=== PATIENT | male | born 1955 | race Caucasian/White ===

== ENCOUNTER 2022-08-03 15:59 | Inpatient (IN) | payer OTHER ==
[~2022-08-03] VITALS: Ht 165.1 cm; Wt 101.5 kg
[~2022-08-03 15:59] MED LIST: ALBU90OI61 INH; CEPH500 PO; ELIQUIS5 M2 PO; IBUP200; LEVEMIR SC; LISI20 PO; METO50ER; OMEP20ER; OXAYDO5 M1 PO; XARELTO10 MG PO
[2022-08-03 16:32] LABS: BASOPHILS ABSOLUTE AUTO 0.04 K/mm3 (0.00-0.23); BASOPHILS PERCENT AUTO 0 % (0-2); EOSINOPHILS ABSOLUTE AUTO 0.12 K/mm3 (0.00-0.68); EOSINOPHILS PERCENT AUTO 1 % (0-6); Hematocrit 43.3 % (37.0-53.0); Hemoglobin 13.7 g/dL (13.5-17.5); IMMATURE GRAN ABSOLUTE AUTO 0.06 K/mm3 (0.00-0.10); IMMATURE GRAN PERCENT AUTO 1 % (0-1); LYMPHOCYTES ABSOLUTE AUTO 1.45 K/mm3 (0.84-5.20); LYMPHOCYTES PERCENT AUTO 14 % (21-46); MONOCYTES ABSOLUTE AUTO 0.99 K/mm3 (0.16-1.47); MONOCYTES PERCENT AUTO 10 % (4-13); Mean Corpuscular HGB 26.6 pg (26.0-34.0); Mean Corpuscular HGB Conc 31.6 g/dL (31.5-36.5); Mean Corpuscular Volume 84 fL (80-100); Mean Platelet Volume 9.9 fL (9.1-12.4); NEUTROPHILS ABSOLUTE AUTO 7.75 K/mm3 (1.96-9.15); NEUTROPHILS PERCENT AUTO 74 % (41-73); Platelet Count 334 K/mm3 (150-400); RDW Coefficient Variation 13.3 % (11.7-14.2); Red Blood Cell Count 5.16 M/mm3 (4.30-5.90); White Blood Cell Count 10.41 K/mm3 (4.00-11.30)
[2022-08-03 16:49] LABS: Albumin, Blood 2.6 g/dL (3.4-5.0); Albumin/Globulin Ratio 0.5 (0.8-1.8); Bilirubin, Total 0.5 mg/dL (0.1-1.0); Bun/Creatinine Ratio 34.7 (12.0-20.0); Calcium, Blood 9.8 mg/dL (8.5-10.1); Creatinine, Blood 0.63 mg/dL (0.60-1.20); Potassium, Blood 4.6 mmol/L (3.5-5.5); Total Protein, Blood 7.6 g/dL (6.4-8.2)
[2022-08-03 17:00] LABS: Source, Urine Clean Catch
[2022-08-03 17:03] LABS: Appearance, Urine Clear (Clear); Bilirubin, Urine Neg (Neg); Blood, Urine Neg (Neg); Color, Urine Yellow (P-Yellow); Glucose Qualitative, Urine Neg (Neg); Ketones, Urine Neg (Neg); Leukocyte Esterase, Urine Neg (Neg); Nitrite, Urine Neg (Neg); Protein, Urine Neg (Neg); Urobilinogen, Urine NORM (Normal)
--- NOTE | 2022-08-04 | NUR ---
PT ARIVES FROM THE ED VIA [facility]. UPON ADMIT THE PT IS SOB, DESPITE BEING ON 5L NC. ONCE TRANSFERED FROM THE [facility] TO THE HOSPITAL BED AND SETTLED IN TO BED THE PTS BREATHING SETTLED DOWN AND THE PT WAS SATING 94% ON 5L NC. THE PT DENIES ANY CHEST PAIN/PRESSURE UPON ADMIT WELL ANY N/V. THE PT DOES REPORT SOME MILD PAIN WITH ROLLING. THE PT IS AXO X4.THE PT IS TOO WEAK TO AMBULATE AT THIS TIME. THE PT IS CURRENTLY RESTING IN BED WITH THE BED IN THE LOWEST POSITION, CPAP IN PLACE W/ 5L BLEED IN AND THE CALL LIGHT AT BEDSIDE. THE PT HAS NO FURTHER COMPLAINTS AT THIS TIME.
[2022-08-04 00:07] VITALS: BP 167/94
[2022-08-04 00:08] VITALS: BP 165/85
--- NOTE | 2022-08-04 00:50 | NUR ---
CALLED DR. GARCIA REGARDING PT HAVING WET LUNG SOUNDS. PRIOR TO CALLING DR. GARCIA I HAD RT COME AND AUSCULTATE THE PTS LUNG SOUNDS TO CONFIRM THAT THE PT HAD WET LUNG SOUNDS. PER DR. GARCIA THE PT'S WET LUNG SOUNDS ARE LIKELY NOT CARDIAC RELATED THE PT DOES NOT HAVE OR REPORT HAVING CHF. PER DR. GARCIA CONTINUE TO FOLLOW COPD EXACERBATION PROTOCOL. NO NEW ORDERS AT THIS TIME.
--- NOTE | 2022-08-04 04:24 | NUR ---
SHIFT SUMMARY; NO ACUTE CHANGES SINCE ADMIT. THE PT IS AXO X4 AND ON BEDREST DUE TO WEAKNESS AT THIS TIME. THE PT WAS SOB ON ADMIT BUT HAS SINCE NOT BEEN. THE PT IS PRESENTLY ON 5L BLEED IN VIA CPAP WITH O2 SATS GREATER THAN 90%. THE PT HAS TELE IN PLACE, A-FIB IN THE 'S. THE PT DENIES ANY SOB, CHEST PAIN/PRESSURE, N/V, OR PAIN. CURRENTLY THE PT IS RESTING IN BED WITH THE BED IN THE LOWEST POSITION AND THE CALL LIGHT AT BEDSIDE.
[2022-08-04 05:22] LABS: BASOPHILS ABSOLUTE AUTO 0.02 K/mm3 (0.00-0.23); BASOPHILS PERCENT AUTO 0 % (0-2); EOSINOPHILS ABSOLUTE AUTO 0.02 K/mm3 (0.00-0.68); EOSINOPHILS PERCENT AUTO 0 % (0-6); Hematocrit 42.8 % (37.0-53.0); Hemoglobin 13.8 g/dL (13.5-17.5); IMMATURE GRAN ABSOLUTE AUTO 0.07 K/mm3 (0.00-0.10); IMMATURE GRAN PERCENT AUTO 1 % (0-1); LYMPHOCYTES PERCENT AUTO 4 % (21-46); MONOCYTES ABSOLUTE AUTO 0.23 K/mm3 (0.16-1.47); MONOCYTES PERCENT AUTO 2 % (4-13); Mean Corpuscular HGB 26.7 pg (26.0-34.0); Mean Corpuscular HGB Conc 32.2 g/dL (31.5-36.5); Mean Corpuscular Volume 83 fL (80-100); Mean Platelet Volume 10.1 fL (9.1-12.4); NEUTROPHILS ABSOLUTE AUTO 11.97 K/mm3 (1.96-9.15); NEUTROPHILS PERCENT AUTO 93 % (41-73); Platelet Count 327 K/mm3 (150-400); RDW Coefficient Variation 13.2 % (11.7-14.2); RDW Standard Deviation 39.8 fL (35.1-46.3); Red Blood Cell Count 5.17 M/mm3 (4.30-5.90); White Blood Cell Count 12.81 K/mm3 (4.00-11.30)
[2022-08-04 06:02] LABS: Albumin, Blood 2.5 g/dL (3.4-5.0); Albumin/Globulin Ratio 0.5 (0.8-1.8); Bilirubin, Total 0.6 mg/dL (0.1-1.0); Bun/Creatinine Ratio 39.8 (12.0-20.0); Calcium, Blood 9.8 mg/dL (8.5-10.1); Creatinine, Blood 0.73 mg/dL (0.60-1.20); Potassium, Blood 5.3 mmol/L (3.5-5.5); Total Protein, Blood 7.5 g/dL (6.4-8.2)
[2022-08-04 06:09] VITALS: BP 147/81
[2022-08-04 07:40] VITALS: BP 148/78
[2022-08-04 15:54] VITALS: BP 105/72
--- NOTE | 2022-08-04 20:07 | NUR ---
SUMMARY- PT A/O X3-4, FUZZY TO DETAILS. USES CALL LIGHT TO MAKE NEEDS KNOWN. PT USING OXYGEN AT 4L/MISTED NC, CONT PULSE OX SATS 90-92%, FREQ MOIST NONPROD COUGH. ENC USE OF FLUTTER, PHLEGM STARTING TO BREAK UP BETTER AND CLEARS SOME SECRETIONS, STATES HE SEALLOWS. PT UP WITH PHYSICAL THERAPY TODAY TO CHAIR FOR A FEW HOURS THROUGH LUNCH. LE WEAKNESS, L LEG ESPECIALLY WEAK AND ALMOST GAVE OUT WHEN RN ASSISTED WITH TX TO CHAIR FOR DINNER. PT HAS RED, CHRONIC APPEARING FROM MOISTURE, YEASTY APPEARING IN GROIN FOLDS AND BUTTOCK, MORE EXCORIATED MED THIGH, CLEANSED GOOD AT 1630, APPLIED MICONAZOLE AND CALAZYME ZINC CREAM. PT USES URINAL TO VOID. URINE MED HELEN 600ML OUT THIS SHIFT. TOLERATING FOOD. PHYSICAL THERAPY ADVISES SMF, PT'S IN AGREEMENT, SHE FEELS SHE COULDN'T HANDLE PT AT HOME. REPOERTED ALL TO RUFINA BENITEZ
[2022-08-04 20:30] VITALS: BP 119/64
[2022-08-05 02:18] VITALS: BP 108/68
--- NOTE | 2022-08-05 04:13 | NUR ---
SHIFT SUMMARY; NO ACUTE CHANGES OVERNIGHT. THE PT HAS BEEN RESTING IN BED T/O THE NIGHT. THE PT IS AXO X4 AND A 1 ASSIST W/ FWW TO THE BEDSIDE CHAIR. THE PT HAS BEEN USING THE BEDSIDE URINAL INDEPENDENTLY T/O THE NIGHT. THE PT HAS HAD HIS CPAP ON T/O THE NIGHT W/ A 4L BLEED IN, 02 SATS HAVE BEEN 91-94%. TELE IS IN PLACE, A-FIB VS A-FLUTTER PER [employer] WITH A RATE IN THE 80'S. THE PT HAS DENIED ANY SOB, CHEST PAIN/PRESSURE OR N/V T/O THE NIGHT. CURRENTLY THE PT IS SLEEPING IN BED WITH THE BED IN THE LOWEST POSITION AND THE CALL LIGHT AT BEDSIDE.
[2022-08-05 05:05] LABS: Hemoglobin 12.3 g/dL (13.5-17.5); Mean Corpuscular HGB 26.6 pg (26.0-34.0); Mean Corpuscular HGB Conc 32.4 g/dL (31.5-36.5); Mean Corpuscular Volume 82 fL (80-100); Mean Platelet Volume 10.2 fL (9.1-12.4); Platelet Count 354 K/mm3 (150-400); RDW Standard Deviation 39.1 fL (35.1-46.3); Red Blood Cell Count 4.63 M/mm3 (4.30-5.90); White Blood Cell Count 9.26 K/mm3 (4.00-11.30)
[2022-08-05 05:36] LABS: Calcium, Blood 9.6 mg/dL (8.5-10.1); Creatinine, Blood 0.79 mg/dL (0.60-1.20); Potassium, Blood 4.7 mmol/L (3.5-5.5)
[2022-08-05 07:59] VITALS: BP 127/75
--- NOTE | 2022-08-05 17:35 | NUR ---
PATIENT IS ALERT AND ORIENTED AND COOPERATIVE WITH CARE. THIS MORNING THE PATIENT'S OXYGEN REQUIREMENTS DID INCREASE TO 7L O2 VIA HIGHFLOW. HE HAS SINCE BEEN TITRATED BACK DOWN TO 4L O2 VIA HIGHFLOW. PATIENT WORKED WITH PT AND OT TODAY. HE HAS BEEN UP TO THE CHAIR FOR MEALS. HE IS IN THE RECLINER NOW FOR DINNER. BEDBATH TODAY. LIDOCAINE PATCH TO LEFT SIDE OF HIS LOWER BACK. USES THE URINAL INDEPENDENTLY. HE WAS INCONTINENT FIRST THING THIS AM. WILL CONTINUE TO MONITOR
[2022-08-05 19:29] VITALS: BP 103/66
--- NOTE | 2022-08-06 02:46 | NUR ---
SHIFT SUMMERY, PT RESTING IN BED, PT GIVEN A SANDWITCH BEFORE GOING TO SLEEP. PT GIVEN HIS MEDS AND PT WENT OT SLEEP, AT 0000 PT HAD MED DUE AND PT AWOKE EASILY WHEN SPOKEN TO. CALL LIGHT IN REACH.
[2022-08-06 04:36] VITALS: BP 113/94
[2022-08-06 06:31] LABS: Bun/Creatinine Ratio 52.3 (12.0-20.0); Calcium, Blood 9.6 mg/dL (8.5-10.1); Creatinine, Blood 0.78 mg/dL (0.60-1.20); Potassium, Blood 4.7 mmol/L (3.5-5.5)
[2022-08-06 07:15] VITALS: BP 135/88
[2022-08-06 15:33] VITALS: BP 117/62
--- NOTE | 2022-08-06 16:06 | NUR ---
PATIENT IS ALERT AND ORIENTED AND COOPERATIVE WITH CARE. HIS OXYGEN HAS BEEN TITRATED DOWN TO 2L O2 VIA NC. PATIENT IS UP TO THE RECLINER FOR MEALS. PATIENT STATES HIS RIGHT LEG PAIN HAS RESOLVED WITH THE LIDOCAINE PATCH. PATIENT WORKED WITH PT THIS MORNING AND HAS IMPROVED ACCORDING TO PT. PATIENT HAS A COUGH. HE USES THE FLUTTER VALVE INDEPENDENTLY. USES THE URINAL. NO BM IN 3 DAYS, WILL MEDICATED PER EMAR. WILL CONTINUE TO MONITOR
[2022-08-06 19:34] VITALS: BP 135/81
--- NOTE | 2022-08-06 23:56 | NUR ---
THIS STUDENT NURSE ASSUMED CARE OF PT AT 1900 UNDER THE OBSERVATION OF NURSE MARTY ORDONEZ. HOB RAISED TO HELP IMPROVE BREATHING. VSS. PT A&OX4. HS MEDICATIONS ADMINISTERED AND TOLERATED WELL. PT CONTINENT VIA URINAL. PT LEFT IN A STATE OF COMFORT AND SAFETY WITH BED LOCKED AND IN LOW POSITION, TWO BED RAILED RAISED, ROOM FREE OF DEBRIS, NONSKID SOCKS IN PLACE, AND CALL LIGHT WITHIN REACH. WILL CONTINUE TO MONITOR THROUGHOUT MY SHIFT.
--- NOTE | 2022-08-07 04:19 | NUR ---
SHIFT SUMMARY THIS STUDENT ADDRESSED THE PT'S COPD EXACERBATION BY ADMINISTERING THE PRESCRIBED SOLUMEDROL, MAINTAINING HOB >45 DEGREES WHEN TOLERATED, AND ASSESSING THE PT'S O2 SAT, RESPIRATORY STATUS, AND RESPIRATIONS. PT TOLERATED HS MEDICATIONS. NYSTATIN AND MYCONIZOL APPLIED ORDERED TO PT. EYEDROPS APPLIED ACCORDING TO EMAR. PT A&OX4 DURING MY SHIFT. PT VSS DURING MY SHIFT. PT REMAINED IN A POSITION OF COMFORT AND SAFETY WITH BED LOCKED AND LOW, TWO RAILS RAISED, NONSKID SOCKS IN PLACE, ROOM CLEAR OF DEBRIS, AND CALL LIGHT WITHIN REACH. WILL CONTINUE TO MONITOR.
--- NOTE | 2022-08-07 04:54 | NUR ---
I HAVE OBSERVED/ASSISTED STUDENT WITH PT CARE AND READ HER DOCUMENTATION OF SUCH. I AGREE WITH THE ABOVE.
[2022-08-07 05:11] VITALS: BP 130/54
[2022-08-07 07:26] VITALS: BP 129/79
[2022-08-07 15:06] VITALS: BP 115/70
--- NOTE | 2022-08-07 16:44 | NUR ---
SHIFT SUMMARY: Messi remains A&O this shift. Up with 1 person ast. Denies pain. VSS. Resp even nonlabored with baseline 2L nc. Rhonchi and exp wheeze to right lobe. RT for nebulizer tx. Continuous pulse ox dc'd. Hands/fingers cool. Will monitor closely. Voiding per urinal. No Bm this shift. No further needs id or verbalized at this time.
--- NOTE | 2022-08-07 18:32 | NUR ---
ASSUMED CARE OF PT AT 1700. PT COOPERATIVE OF CARE AND PLEASANT. A&OX4. NO C/O PAIN. PT WAS UP TO CHAIR FOR DINNER. VSS. BED IN LOWEST POSITION AND CALL LIGHT IN REACH.
[2022-08-07 19:53] VITALS: BP 138/72
[2022-08-08 04:57] VITALS: BP 120/69
--- NOTE | 2022-08-08 06:03 | NUR ---
SHIFT SUMMERY, PT RESTING IN BED, PT VOIDING FREQUENTLY. PT HAD AN HS SNSCK LAST NOC AND WATCHED TV FOR A WHILE BEFORE GOING TO SLEEP. CALL LIGHT IN REACH.
[2022-08-08 07:32] VITALS: BP 134/74
--- NOTE | 2022-08-08 09:48 | NUR ---
CALLED DR AYALA- PT IV LEAKING AND INFILTRATED AT THE TIME OF ASSESSMENT, PRIOR TO ADMINISTRATION OF IV STEROIDS. RECIEVED AN ORDER TO DC TELE, NO IV ACCESS NEEDED AND DC IV SOLUMEDROL AND START PO PREDNISONE 40 MG PO DAILY. WILL ADMINISTER ONNCE VERIFIED BY PHARMACY
[2022-08-08 12:00] LABS: Influenza A, PCR NEGATIVE (NEGATIVE); Influenza B, PCR NEGATIVE (NEGATIVE); Resp Syncytial Virus, PCR NEGATIVE (NEGATIVE); SARS-Cov-2 (COVID-19) PCR, MMC NEGATIVE (NEGATIVE)
[2022-08-08] MEDS ORDERED: DOCU100 PO (13:03)
[2022-08-08] MEDS ORDERED: PRED20 PO (13:05)
[2022-08-08] MEDS ORDERED: TRELEGY ELLIPT1 EACH INH (13:06)
[2022-08-08] MEDS ORDERED: SENNA LAXATIVE8.6 MG PO (13:06)
--- NOTE | 2022-08-08 14:48 | NUR ---
DISCHARGE NOTE- PT WAS TAKEN VIA WC TRANSPORT TO [facility]. IV AND TELE DC'D EARLIER IN THE SHIFT. CALLED REPORT TO RN AT [facility]. NO FURTHER QUESTIONS AT THE TIME OF REPORT.
== END 2022-08-08 14:05 | DRG 189 ==
LOC: ER 15:59 → MEDS 23:01 → ENPENDDIS 08-08 12:40 → MEDS 08-08 14:05
PROVIDERS: Emergency Medicine; Family Medicine; Family Medicine Adult Medicine; ADMIT Internal Medicine
PROC: 5A09357 Assistance with Respiratory Ventilation, Less than 24 Consecutive Hours, Continuous Positive Airway Pressure (ICD-10-PCS; principal; 2022-08-06)
DX: J96.21 Acute and chronic respiratory failure with hypoxia (principal); J44.1 Chronic obstructive pulmonary disease with (acute) exacerbation; E87.1 Hypo-osmolality and hyponatremia; I48.20 Chronic atrial fibrillation, unspecified; I10 Essential (primary) hypertension; Z68.34 Body mass index [BMI] 34.0-34.9, adult; F17.210 Nicotine dependence, cigarettes, uncomplicated; G47.33 Obstructive sleep apnea (adult) (pediatric); E66.9 Obesity, unspecified; M48.061 Spinal stenosis, lumbar region without neurogenic claudication; E11.42 Type 2 diabetes mellitus with diabetic polyneuropathy; M51.37 Other intervertebral disc degeneration, lumbosacral region; R25.1 Tremor, unspecified; Z20.822 Contact with and (suspected) exposure to COVID-19; I87.8 Other specified disorders of veins; B35.1 Tinea unguium; Z89.431 Acquired absence of right foot; Z99.81 Dependence on supplemental oxygen; Z79.811 Long term (current) use of aromatase inhibitors; Z79.51 Long term (current) use of inhaled steroids; Z79.84 Long term (current) use of oral hypoglycemic drugs; Z91.199 Patient's noncompliance with other medical treatment and regimen due to unspecified reason; Z79.4 Long term (current) use of insulin; Z71.6 Tobacco abuse counseling
CPT/HCPCS: 0241U; 36415; 71045; 72131; 73620; 80048; 80053; 81003; 82550; 82947; 83036; 83880; 84443; 84484; 85025; 85027; 85651; 86140; 87040; 93005; 93010; 94640; 94644; 94660; 94664; 94762; 96374; 96375; 97110; 97116; 97162; 97165; 97530; 97535; 99285-25; A9270; J0456; J1644; J1815; J2920; J2930; J7050; J7512

== ENCOUNTER 2022-10-21 11:06 | Inpatient (IN) | payer OTHER ==
[~2022-10-21] VITALS: Ht 165.1 cm; Wt 103.8 kg
[~2022-10-21 11:06] MED LIST changes: +DOCU100 PO; +PRED20 PO; +SENNA LAXATIVE8.6 MG PO; +TRELEGY ELLIPT1 EACH INH
[2022-10-21 12:06] LABS: BASOPHILS ABSOLUTE AUTO 0.04 K/mm3 (0.00-0.23); BASOPHILS PERCENT AUTO 1 % (0-2); EOSINOPHILS ABSOLUTE AUTO 0.29 K/mm3 (0.00-0.68); EOSINOPHILS PERCENT AUTO 4 % (0-6); Hematocrit 37.4 % (37.0-53.0); Hemoglobin 12.3 g/dL (13.5-17.5); IMMATURE GRAN ABSOLUTE AUTO 0.05 K/mm3 (0.00-0.10); IMMATURE GRAN PERCENT AUTO 1 % (0-1); LYMPHOCYTES ABSOLUTE AUTO 1.66 K/mm3 (0.84-5.20); LYMPHOCYTES PERCENT AUTO 22 % (21-46); MONOCYTES ABSOLUTE AUTO 0.77 K/mm3 (0.16-1.47); MONOCYTES PERCENT AUTO 10 % (4-13); Mean Corpuscular HGB 27.8 pg (26.0-34.0); Mean Corpuscular HGB Conc 32.9 g/dL (31.5-36.5); Mean Corpuscular Volume 85 fL (80-100); Mean Platelet Volume 10.2 fL (9.1-12.4); NEUTROPHILS PERCENT AUTO 64 % (41-73); Platelet Count 236 K/mm3 (150-400); RDW Coefficient Variation 14.7 % (11.7-14.2); RDW Standard Deviation 45.4 fL (35.1-46.3); Red Blood Cell Count 4.42 M/mm3 (4.30-5.90); White Blood Cell Count 7.71 K/mm3 (4.00-11.30)
[2022-10-21 12:20] LABS: Albumin, Blood 3.4 g/dL (3.4-5.0); Albumin/Globulin Ratio 1.1 (0.8-1.8); Bilirubin, Total 0.5 mg/dL (0.1-1.0); Bun/Creatinine Ratio 23.2 (12.0-20.0); Creatinine, Blood 0.69 mg/dL (0.60-1.20); Globulin, Blood 3.1 g/dL (2.2-4.0); Potassium, Blood 3.9 mmol/L (3.5-5.5); Total Protein, Blood 6.5 g/dL (6.4-8.2)
[2022-10-21 17:14] VITALS: BP 159/81
[2022-10-21 20:01] VITALS: BP 128/67
--- NOTE | 2022-10-21 20:01 | NUR ---
NO ACUTE EVENTS SINCE ADMISSION. PT IS AAOX4. X1-2 SBA BSC. PT DENIES PAIN UNLESS BLE ARE TOUCHED.
[2022-10-22 03:22] VITALS: BP 130/74
[2022-10-22 06:09] LABS: Hematocrit 41.1 % (37.0-53.0); Hemoglobin 13.2 g/dL (13.5-17.5); Mean Corpuscular HGB 27.7 pg (26.0-34.0); Mean Corpuscular HGB Conc 32.1 g/dL (31.5-36.5); Mean Corpuscular Volume 86 fL (80-100); Mean Platelet Volume 10.7 fL (9.1-12.4); Platelet Count 205 K/mm3 (150-400); RDW Coefficient Variation 14.8 % (11.7-14.2); RDW Standard Deviation 47.1 fL (35.1-46.3); Red Blood Cell Count 4.76 M/mm3 (4.30-5.90)
[2022-10-22 07:21] LABS: Bun/Creatinine Ratio 19.4 (12.0-20.0); Calcium, Blood 8.8 mg/dL (8.5-10.1); Creatinine, Blood 0.72 mg/dL (0.60-1.20); Potassium, Blood 4.2 mmol/L (3.5-5.5)
[2022-10-22 07:55] VITALS: BP 139/83
--- NOTE | 2022-10-22 11:04 | NUR ---
pt laying in bed with eyes closed, wakes easily, a/ox4, pleasant and cooperative with care, follows commands well, denies pain at this time, lungs are clear in upper [place], dim in bases, resp even and unlabored, no cough noted, hrr, no edema noted, cap refill < 3sec, vs stable, afebrile, iv site to lfa site is clear and patent, btx4, abd flat soft nontender, voids without diff, skin has pink right stump, looks to be receding from outline, pt states is improved, ashleigh yee, call light in reach.
[2022-10-22 16:04] VITALS: BP 93/64
--- NOTE | 2022-10-22 18:01 | NUR ---
pt doing ok, medicated once for pain, keeping stump elevated, no further change this shift, call light in reach.
[2022-10-22 19:41] VITALS: BP 118/69
[2022-10-23 03:52] VITALS: BP 121/80
--- NOTE | 2022-10-23 05:23 | NUR ---
SHIFT SUMMARY; NO ACUTE CHANGES OVERNIGHT. THE PT IS AXO X4 AND BEDREST. THE PT HAS REQUESTED PRN PAIN MEDICATION A FEW TIMES IN RELATION TO LEG/HIP PAIN. THE PT HAS GOT GOOD RELIEF FROM PRN PAIN MEDICATION AND APPLYING A HEAT PAD. THE PT HAS BEEN SLEEPING IN BED FOR THE MAJORITY OF THE NIGHT, THE PT IS ON 2L NC WITH 02 SATS >92%. THE PT DENIES ANY CHEST PAIN/PRESSURE, N/V OR SOB. CURRENTLY THE PT IS SLEEPING IN BED WITH THE BED IN THE LOWEST POSITION AND THE CALL LIGHT AT BEDSIDE. FIRE SAFETY MAINTAINED T/O THE NIGHT.
[2022-10-23 07:38] VITALS: BP 139/74
--- NOTE | 2022-10-23 09:00 | NUR ---
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
[2022-10-23] MEDS ORDERED: Acetaminophen650 M1 PO (15:12)
[2022-10-23] MEDS ORDERED: ELIQUIS5 M2 PO (15:13)
[2022-10-23] MEDS ORDERED: LACT PO (15:16)
[2022-10-23] MEDS ORDERED: MIRALAX17 GM PO (15:16)
[2022-10-23] MEDS ORDERED: METF500 PO (15:19)
[2022-10-23] MEDS ORDERED: CLIN150 PO (15:19)
--- NOTE | 2022-10-23 15:39 | NUR ---
pt has been discharged to home, he handles his own medications, went over instructions with him, he verbalized understanding, new medications were faxed to [facility], waiting on a ride. call light in reach.
[2022-10-23 16:01] VITALS: BP 136/91
--- NOTE | 2022-10-23 17:28 | NUR ---
CALLED [facility] CHECK [facility] RIDE BENEFITS AND WAS INFORMED PT DOES NOT HAVE ANY BENEFITS. PT SON INFORMED PT DOES NOT HAVE RIDE BENEFITS. REQUESTED SON TO COME AND GATE KEEPER HIS FATHER. PT SON STATED HE WAS UNABLE TO PICK HIM UP. PT GIVEN CHOICES TO PAY FOR A TAXI HOME OR FIND A RIDE FROM A FRIEND OR OTHER FAMILY MEMBER. PT STATED FRIEND LISTED IN OUR RECORDS IS NOW. PT SON REQUESTED TO FIND A RIDE FOR HIS FATHER. SON STATED HE DID NOT KNOW ANYONE TO CALL AND DID NOT KNOW HIS FATHERS CAREGIVERS NUMBER TO CALL. PT DID NOT KNOW CAREGIVERS NUMBER. PT SON STATED OVER PHONE WHEN INFORMED HE WOULD NEED TO FIND SOMEONE TO GATE KEEPER HIS FATHER OR WE CAN PAY FOR A RIDE TO [place] "I KNOW PEOPLE IN [place] AND [place]S OF LAW ENFORCEMENT AND I KNOW THE RULES. YOU CAN'T JUST KICK SOMEONE OUT." SON SOUNDED THREATENING TO THIS RN. RN STATED TO SON, "DO NOT THREATEN OVER THE PHONE. THIS RN ENDED THE CALL. SHAQUILLE RN GRADE RECORDER NOTIFIED OF THE CONVERSATION. SHAQUILLE AUTHORIZED A TAXI RIDE. WAITING FOR FORM.
--- NOTE | 2022-10-23 18:16 | NUR ---
pt has a taxi ride home as his son unable to come to get him, iv removed intact, left via wheelchair with gas line installer supervisor in attendence and all his belongings.
== END 2022-10-23 18:10 | disposition home or self-care (01) | DRG 603 ==
LOC: ER 11:06 → MEDS 11:07
PROVIDERS: Emergency Medicine; ADMIT Internal Medicine
PROC: 5A09357 Assistance with Respiratory Ventilation, Less than 24 Consecutive Hours, Continuous Positive Airway Pressure (ICD-10-PCS; principal; 2022-10-23)
DX: L03.115 Cellulitis of right lower limb (principal); I48.20 Chronic atrial fibrillation, unspecified; F17.210 Nicotine dependence, cigarettes, uncomplicated; J44.9 Chronic obstructive pulmonary disease, unspecified; I10 Essential (primary) hypertension; H02.105 Unspecified ectropion of left lower eyelid; I83.91 Asymptomatic varicose veins of right lower extremity; E11.9 Type 2 diabetes mellitus without complications; E66.9 Obesity, unspecified; G47.33 Obstructive sleep apnea (adult) (pediatric); F43.10 Post-traumatic stress disorder, unspecified; Z91.199 Patient's noncompliance with other medical treatment and regimen due to unspecified reason; Z89.431 Acquired absence of right foot; Z79.811 Long term (current) use of aromatase inhibitors; Z79.891 Long term (current) use of opiate analgesic; Z79.52 Long term (current) use of systemic steroids; Z79.01 Long term (current) use of anticoagulants; Z90.49 Acquired absence of other specified parts of digestive tract; Z98.890 Other specified postprocedural states; Z99.81 Dependence on supplemental oxygen; Z79.4 Long term (current) use of insulin; Z68.34 Body mass index [BMI] 34.0-34.9, adult
CPT/HCPCS: 36415; 80048; 80053; 82947; 85025; 85027; 93971; 94640; 94664; 94760; 96365; 96366; 96367; 96376; 99285-25; A9270; G0378; J1815; J3370

== ENCOUNTER 2024-07-02 15:40 | Emergency (ER) | payer OTHER ==
[~2024-07-02] VITALS: Ht 165.1 cm; Wt 88.9 kg
[~2024-07-02 15:40] MED LIST changes: +Acetaminophen650 M1 PO; +CLIN150 PO; +LACT PO; +METF500 PO; +MIRALAX17 GM PO
[2024-07-02 16:44] LABS: BASOPHILS ABSOLUTE AUTO 0.03 K/mm3 (0.00-0.23); BASOPHILS PERCENT AUTO 1 % (0-2); EOSINOPHILS ABSOLUTE AUTO 0.12 K/mm3 (0.00-0.68); EOSINOPHILS PERCENT AUTO 2 % (0-6); Hematocrit 37.6 % (37.0-53.0); IMMATURE GRAN ABSOLUTE AUTO 0.05 K/mm3 (0.00-0.10); IMMATURE GRAN PERCENT AUTO 1 % (0-1); LYMPHOCYTES PERCENT AUTO 20 % (21-46); MONOCYTES ABSOLUTE AUTO 0.59 K/mm3 (0.16-1.47); MONOCYTES PERCENT AUTO 11 % (4-13); Mean Corpuscular HGB 28.6 pg (26.0-34.0); Mean Corpuscular HGB Conc 31.9 g/dL (31.5-36.5); Mean Corpuscular Volume 90 fL (80-100); Mean Platelet Volume 10.3 fL (9.1-12.4); NEUTROPHILS ABSOLUTE AUTO 3.67 K/mm3 (1.96-9.15); NEUTROPHILS PERCENT AUTO 66 % (41-73); Platelet Count 159 K/mm3 (150-400); RDW Coefficient Variation 13.3 % (11.7-14.2); RDW Standard Deviation 43.3 fL (35.1-46.3); Red Blood Cell Count 4.19 M/mm3 (4.30-5.90); White Blood Cell Count 5.56 K/mm3 (4.00-11.30)
[2024-07-02 17:06] LABS: Albumin, Blood 2.8 g/dL (3.4-5.0); Albumin/Globulin Ratio 0.8 (0.8-1.8); Bilirubin, Total 0.3 mg/dL (0.1-1.0); Bun/Creatinine Ratio 36.3 (12.0-20.0); Calcium, Blood 8.8 mg/dL (8.5-10.1); Creatinine, Blood 0.63 mg/dL (0.60-1.20); Globulin, Blood 3.3 g/dL (2.2-4.0); Potassium, Blood 4.8 mmol/L (3.5-5.5); Total Protein, Blood 6.1 g/dL (6.4-8.2)
[2024-07-02] MEDS ORDERED: Clindamycin 600mg in D5W 50 ML IV ONE (18:10)
[2024-07-02] MEDS ORDERED: Cleocin HCl150 MG PO (18:49)
[2024-07-02] MEDS ORDERED: Clindamycin HCl 150 MG Cap PO ONE ×2 (18:50)
[2024-07-02 19:05] VITALS: BP 143/76
== END 2024-07-02 19:34 | disposition home or self-care (01) ==
LOC: ER 15:40
PROVIDERS: Student in an Organized Health Care Education/Training Program
DX: L03.115 Cellulitis of right lower limb (principal); J44.9 Chronic obstructive pulmonary disease, unspecified; I10 Essential (primary) hypertension; I48.91 Unspecified atrial fibrillation; G47.33 Obstructive sleep apnea (adult) (pediatric); E11.9 Type 2 diabetes mellitus without complications; F17.210 Nicotine dependence, cigarettes, uncomplicated; Z79.84 Long term (current) use of oral hypoglycemic drugs; Z79.51 Long term (current) use of inhaled steroids; Z79.899 Other long term (current) drug therapy
CPT/HCPCS: 73620; 80053; 85025; 99284-25; A9270

== ENCOUNTER 2024-07-22 10:16 | Emergency (ER) | payer OTHER ==
[~2024-07-22] VITALS: Ht 165.1 cm; Wt 88.5 kg
[~2024-07-22 10:16] MED LIST changes: +Cleocin HCl150 MG PO
[2024-07-22] MEDS ORDERED: MethylPREDNISolone Sod Succ 125 MG Vial IV ONE (10:30)
[2024-07-22] MEDS ORDERED: Albuterol 2.5 MG/3 ML VIAL INH SCH (10:30)
[2024-07-22 10:37] LABS: BASOPHILS ABSOLUTE AUTO 0.05 K/mm3 (0.00-0.23); BASOPHILS PERCENT AUTO 1 % (0-2); EOSINOPHILS ABSOLUTE AUTO 0.19 K/mm3 (0.00-0.68); EOSINOPHILS PERCENT AUTO 2 % (0-6); Hematocrit 42.7 % (37.0-53.0); Hemoglobin 13.8 g/dL (13.5-17.5); IMMATURE GRAN ABSOLUTE AUTO 0.04 K/mm3 (0.00-0.10); IMMATURE GRAN PERCENT AUTO 1 % (0-1); LYMPHOCYTES ABSOLUTE AUTO 1.37 K/mm3 (0.84-5.20); LYMPHOCYTES PERCENT AUTO 16 % (21-46); MONOCYTES ABSOLUTE AUTO 1.28 K/mm3 (0.16-1.47); MONOCYTES PERCENT AUTO 15 % (4-13); Mean Corpuscular HGB 28.9 pg (26.0-34.0); Mean Corpuscular HGB Conc 32.3 g/dL (31.5-36.5); Mean Corpuscular Volume 89 fL (80-100); Mean Platelet Volume 10.4 fL (9.1-12.4); NEUTROPHILS ABSOLUTE AUTO 5.81 K/mm3 (1.96-9.15); NEUTROPHILS PERCENT AUTO 66 % (41-73); Platelet Count 170 K/mm3 (150-400); RDW Coefficient Variation 13.7 % (11.7-14.2); RDW Standard Deviation 44.5 fL (35.1-46.3); Red Blood Cell Count 4.78 M/mm3 (4.30-5.90); White Blood Cell Count 8.74 K/mm3 (4.00-11.30)
[2024-07-22 10:57] LABS: Albumin, Blood 3.3 g/dL (3.4-5.0); Albumin/Globulin Ratio 0.9 (0.8-1.8); Bilirubin, Total 1.3 mg/dL (0.1-1.0); Creatinine, Blood 0.64 mg/dL (0.60-1.20); Globulin, Blood 3.6 g/dL (2.2-4.0); Potassium, Blood 3.9 mmol/L (3.5-5.5); Total Protein, Blood 6.9 g/dL (6.4-8.2)
[2024-07-22] MEDS ORDERED: Albuterol HFA200 ACT/6.7 GM INH INH ONE (11:40)
[2024-07-22 16:30] VITALS: BP 151/70
[2024-07-22] MEDS ORDERED: Albuterol HFA200 ACT/6.7 GM INH INH PRN (16:35)
== END 2024-07-22 16:53 | disposition home or self-care (01) ==
LOC: ER 10:16
PROVIDERS: Emergency Medicine
DX: J44.1 Chronic obstructive pulmonary disease with (acute) exacerbation (principal); R53.1 Weakness; I10 Essential (primary) hypertension; I48.20 Chronic atrial fibrillation, unspecified; E11.9 Type 2 diabetes mellitus without complications; G47.33 Obstructive sleep apnea (adult) (pediatric); F17.210 Nicotine dependence, cigarettes, uncomplicated; Z91.199 Patient's noncompliance with other medical treatment and regimen due to unspecified reason; Z99.81 Dependence on supplemental oxygen; Z79.84 Long term (current) use of oral hypoglycemic drugs; Z79.01 Long term (current) use of anticoagulants; Z79.899 Other long term (current) drug therapy
CPT/HCPCS: 71045; 80053; 83880; 84484; 85025; 93005; 93010; 94644; 94664; 96374; 97162; 97530; 99285-25; A9270; J2919